=== PATIENT | male | born 1995 | race Caucasian/White ===

== ENCOUNTER 2018-03-25 21:33 | Emergency (ER) | payer SELFPAY, OTHER ==
[2018-03-25] MEDS: HYDROCODONE/APAP (5/325) TAB PO (23:40)
[2018-03-25] MEDS: BACITRACIN 0.9 GM OINT TOP (23:43)
== END 2018-03-25 23:59 | disposition home or self-care (01) ==
LOC: FTE 21:33
DX: S63.501A Unspecified sprain of right wrist, initial encounter (principal); S13.4XXA Sprain of ligaments of cervical spine, initial encounter; R07.9 Chest pain, unspecified; V49.00XA Driver injured in collision with unspecified motor vehicles in nontraffic accident, initial encounter
CPT/HCPCS: 29125; 70450; 71045; 73110-RT; 99284-25